=== PATIENT | male | born 1975 | race Caucasian/White ===

== ENCOUNTER 2023-12-10 13:46 | Emergency (ER) | payer BC, SELFPAY ==
[2023-12-10 14:01] VITALS: BP 133/74; PULSE 105; RESP 18; TEMP 36.9; O2SAT 97
[2023-12-10 14:29] LABS: Basophils Absolute Auto 0.1 K/mm3 (0.0-0.1); Basophils Percent Auto 0.7 % (0.2-1.2); Eosinophils Absolute Auto 0.1 K/mm3 (0-0.3); Eosinophils Percent Auto 1.1 % (0-4.4); Hematocrit 41.8 % (42.0-52.0); Hemoglobin 15.1 g/dL (14.0-18.0); Immature Granulocyte Absolute 0.02 K/mm3 (0.00-0.031); Immature Granulocyte Percent A 0.3 % (0-0.5); Immature Platelet Fraction Pct 18.9 % (0.9-11.2); Lymphocytes Percent Auto 30.8 % (18.3-44.2); Mean Corpuscular HGB Conc 36.1 g/dl (32-36); Mean Corpuscular Hemoglobin 32.4 pg (26-34); Mean Corpuscular Volume 89.7 fl (80-100); Mean Platelet Volume 13.3 fl (7.4-10.4); Monocytes Absolute Auto 0.5 K/mm3 (0.1-0.6); Monocytes Percent Auto 6.4 % (2.6-8.5); Neutrophils Absolute Auto 4.3 K/mm3 (1.3-6.7); Neutrophils Percent Auto 60.7 % (45.5-73.1); Platelet Count Result 55 k/mm3 (150-375); Red Blood Count 4.66 M/mm3 (4.6-6.20); Red Cell Distribution Width 12.4 % (11.5-14.5); White Blood Count 7.1 K/mm3 (4.5-10.0)
[2023-12-10 14:37] LABS: Alanine Aminotransferase 57 U/L (6-50); Albumin Level 4.6 g/dL (3.5-5.1); Alkaline Phosphatase 114 U/L (38-126); Anion Gap 10 mmol/L (4-12); Aspartate Amino Transferase 57 U/L (17-59); Bilirubin,Total 3.7 mg/dL (0.2-1.3); Blood Urea Nitrogen 14 mg/dL (9-20); Carbon Dioxide 29 mmol/L (22-30); Chloride 94 mmol/L (98-107); Estimated CRCL calculation 130 ml/min; Estimated Glomerular Filt Rate > 60; Glucose 331 mg/dL (65-110); Potassium 4.4 mmol/L (3.4-5.0); Sodium 133 mmol/L (137-145)
[2023-12-10 14:41] LABS: Glucose Point of Care 331 mg/dl (65-105)
[2023-12-10 14:44] LABS: Platelet Estimate Decreased (Adequate); Schistocytes None Seen
[2023-12-10 14:46] LABS: Appearance Urine Clear (Clear); Bacteria Urine None Seen /hpf; Bilirubin Urine Negative (Negative); Blood Urine 1+ (Negative); Color Urine Yellow (Yellow); Glucose Urine UA 3+ mg/dL (Negative); Ketones Urine 2+ mg/dL (Negative); Leukocyte Esterase Ur Negative LEU/UL (Negative); Nitrate Urine Negative (Negative); Non Pathogenic Casts 0-2; Protein Urine Negative (Negative); RBC Urine 0-2 /hpf (0-2); Squamous Epithelial Cell Urine None Seen /hpf (Few); WBC Urine 0-5 /hpf (0-3)
[2023-12-10 14:52] LABS: Add Urine Microscopic? YES; Specific Grav Ur 1.035 (1.001-1.035)
--- NOTE | 2023-12-10 16:19 | ED.RECABL ---
HPI - Recheck/Abnormal Lab/Rx General Chief Complaint: Recheck/Abnormal Lab/Rx Stated Complaint: ELEVATED BLOOD SUGAR Time Seen by Provider: 12/10/23 16:01 Source: patient and family History of Present Illness HPI narrative: 48 years old white male came to the emergency room from urgent care because of elevated blood glucose. Patient reports history of oral thrush for over 1 month been treated with antifungal treatment without success, intermittent cut on dry sticky mouth, 20 lb loss, sleep all the time, went to urgent care today and blood glucose was 360 referred to the emergency room for further evaluation. Patient does not take medicine at home, never been diabetic before. History of family diabetes. He denies any fever, chills, nausea, vomiting, abdominal pain, chest pain, headache, or respiratory symptoms Related Data Home Medications Medication Instructions Recorded Confirmed valsartan 160 mg tablet mg 12/10/23 Allergies Allergy/AdvReac Type Severity Reaction Status Date / Time No Known Allergies Allergy Verified 12/10/23 13:48 Review of Systems Review of Systems: All systems reviewed & are unremarkable except as noted in HPI and below Exam Narrative: General appearance: Well-developed, well-nourished Skin: Normal color Head: Normocephalic, nontraumatic Eyes: Clear conjunctiva ENT: Oropharynx normal, ears normal, nose normal a red tongue and oral cavity, no thrush Neck: Supple, nontender Chest and respiratory: Airway patent, no respiratory distress, no accessory muscle use Heart: Regular rate/rhythm Abdomen: Soft, nontender, no organomegaly, quiet bowel sounds Vascular: Normal peripheral pulses, normal capillary refill. Musculoskeletal: Normal range of motion, nontender back Neurologic: Alert and oriented ?3, CROZE CUTTER is normal as tested, no gross motor deficit Course Consultations Consultation #1: DR OLMEDO, PATIENT'S FAMILY PHYSICIAN REQUESTED TO DISCHARGE PATIENT ON METFORMIN 500 B.I.D. AND TO FOLLOW UP WITH HIM WITHIN 1 WEEK Date: 12/10/23 Time: 18:34 Vital Signs Vital signs: Vital Signs Temperature 36.9 C 12/10/23 14:01 Pulse Rate 105 H 12/10/23 14:01 Respiratory Rate 18 12/10/23 14:01 Blood Pressure 133/74 12/10/23 14:01 Pulse Oximetry 97 12/10/23 14:01 Temperature 36.9 C 12/10/23 14:01 Pulse Rate 79 12/10/23 16:46 Respiratory Rate 18 12/10/23 16:46 Blood Pressure 105/67 12/10/23 16:46 Pulse Oximetry 99 12/10/23 16:46 MDM - Recheck/Abnormal Lab/Rx MDM Narrative Medical decision making narrative: PATIENT REFERRED TO THE ED BECAUSE OF ELEVATED BLOOD GLUCOSE. PATIENT IS NOT DIABETIC. DIFFERENTIAL DIAGNOSIS NEW ONSET DIABETES. BLOOD WORKUP TODAY SHOWED THROMBOCYTOPENIA OF 55, SODIUM 133, BLOOD GLUCOSE OF 331, TOTAL BILIRUBIN OF 3.7 BHB OF 1.37 IN THE ED PATIENT RECEIVED 2 L OF NORMAL SALINE IV, 4 UNITS OF INSULIN SUBQ, 500 MG OF METFORMIN EXTENDED RELEASE. DISCHARGED ON METFORMIN 500 B.I.D., SEE FAMILY PHYSICIAN IN 1 WEEK THE PT WAS DISCHARGED TO HOME.THE PT,S CONDITION UPON DISCHARGE WAS FAIR,EDUCATION WAS PROVIDED TO THE PT IN REFERENCE TO THE FINAL IMPRESSION,DISCHARGE STUDY RESULTS,TREATMENT,PROGNOSIS AND NEED FOR FOLLOW UP . Differential Diagnosis Differential diagnosis: Likely other ( ABOVE) Medical Records Attestation: I reviewed the patient's medical records. Lab Data Attestation: I reviewed the patient's lab results. 12/10/23 14:14 12/10/23 14:14 Labs: Lab Results 12/10/23 12/10/23 12/10/23 Range/Units 14:13 14:14 14:21 WBC 7.1 (4.5-10.0) K/mm3 RBC 4.66 (4.6-6.20) M/mm3 Hgb 15.1 (14.0-18.0) g/dL
[2023-12-10 16:46] VITALS: BP 105/67; PULSE 79; RESP 18; O2SAT 99
[2023-12-10] MEDS: SODIUM CHLORIDE 0.9% IV 1,000 ML 999 ML IV CONT ×2 (16:46)
[2023-12-10 16:59] LABS: Alveolar/Arterial O2 Gradient 20.2 mmHg; Base Excess ABG 0.2 mEq/l (+/-2.0); Device ROOM AIR; Fractional Inspired Oxygen 21 %; HCO3 ABG 25.6 mEq/l (22.0-26.0); Modified Allen's Test Pass; Oxygen Content ABG 18.7 %vol (16.0-22.0); Oxygen Saturation ABG 95.2 % (95.0-100.0); Oxyhemoglobin 92.8 % THb (90.0-100.0); PCO2 ABG 43.9 mmHg (35.0-45.0); PO2 FiO2 Ratio Arterial Blood 3.67 %; Site Drawn RIGHT RADIAL; Total Hemoglobin 14.3 g/dL (12.0-18.0); pH ABG 7.383 (7.350-7.450)
[2023-12-10 17:13] LABS: Beta-Hydroxybutyrate/Acetoacetate 1.37 mmol/L (0.02-0.27)
[2023-12-10 17:19] LABS: Hemoglobin A1C 12.3 % (<5.7)
[2023-12-10 17:24] LABS: Magnesium 1.7 mg/dL (1.6-2.3); Phosphorus 4.2 mg/dL (2.5-4.5)
[2023-12-10 18:13] LABS: Glucose Point of Care 243 mg/dl (65-105)
[2023-12-10] MEDS: metFORMIN HCL XR 500 MG TAB.SR.24H PO (18:43)
[2023-12-10] MEDS: INSULIN HUMAN REGULAR (*BKC) 100 UNITS/ML SUB-Q (19:16)
== END 2023-12-10 19:20 | disposition home or self-care (01) ==
PROVIDERS: Emergency Provider Emergency Medicine; PCP Family Medicine
DX: E11.9 Type 2 diabetes mellitus without complications (principal)
CPT/HCPCS: 36415; 36600; 80053; 81001; 82010; 82805; 82948; 83036; 83735; 84100; 85025; 85055; 96360; 99283; A9270; J1815; J7030